=== PATIENT | female | born 1985 | race Caucasian/White ===

== ENCOUNTER → 2019-01-06 | Outpatient (CLI) | payer MEDICAID ==
--- NOTE | 2019-01-06 11:27 | RADIOLOGY REPORT (SQ) ---
EXAM DESCRIPTION: CHEST PA/LATERAL COMPLETED DATE/TIME: 01/06/2019 11:08 am REASON FOR STUDY: ENCOUNTER FOR OTHER PREPROCEDURAL EXAMINATION COMPARISON: None. EXAM PARAMETERS: NUMBER OF VIEWS: two views TECHNIQUE: Digital Frontal and Lateral radiographic views of the chest acquired. RADIATION DOSE: NA LIMITATIONS: none FINDINGS: LUNGS AND PLEURA: No consolidation or effusions. No pneumothorax. Biapical pleural thick ening. MEDIASTINUM AND HILAR STRUCTURES: No masses or contour abnormalities. HEART AND VASCULAR STRUCTURES: Heart normal size. No evidence for failure. BONES: No acute findings. HARDWARE: [id number] is in place. OTHER: No other significant finding. IMPRESSION: NO SIGNIFICANT RADIOGRAPHIC FINDING IN THE CHEST. TECHNICAL DOCUMENTATION: JOB ID: [id number] [employer]- All Rights Reserved Reading location - IP/workstation name: [email or web address]
[2019-01-06 11:43] LABS: ABSOLUTE EOSINOPHILS # (AUTO) 0.2 10^3/uL (0.0-0.6); ABSOLUTE LYMPHOCYTES (AUTO) 3.8 10^3/uL (0.5-4.7); ABSOLUTE MONOCYTES (AUTO) 0.5 10^3/uL (0.1-1.4); ABSOLUTE NEUT (AUTO) 3.9 10^3/uL (1.7-8.2); BASOPHILS % (AUTO) 0.6 % (0-2); HEMATOCRIT 36.2 % (36.0-47.0); HEMOGLOBIN 12.1 g/dL (12.0-15.5); LYMPHOCYTES % (AUTO) 45.1 % (13-45); MEAN CORPUSCULAR HEMOGLOBIN 29.4 pg (27.0-33.4); MEAN CORPUSCULAR HGB CONC 33.6 g/dL (32.0-36.0); MEAN CORPUSCULAR VOLUME 88 fl (80-97); MONOCYTES % (AUTO) 6.1 % (3-13); PLATELET COUNT 297 10^3/uL (150-450); RED BLOOD COUNT 4.14 10^6/uL (3.72-5.28); RED CELL DISTRIBUTION WIDTH 15.8 % (11.5-14.0); SEGMENTED NEUTROPHILS % (AUTO) 46.2 % (42-78); TOTAL CELLS COUNTED % (AUTO) 100 %; WHITE BLOOD COUNT 8.4 10^3/uL (4.0-10.5)
[2019-01-06 11:53] LABS: AMORPHOUS SEDIMENT,URINE TRACE /HPF; APPEARANCE,URINE CLOUDY; BILIRUBIN,URINE NEGATIVE (NEGATIVE); COLOR,URINE YELLOW; GLUCOSE, URINE NEGATIVE (NEGATIVE); KETONES,URINE NEGATIVE (NEGATIVE); PROTEIN,URINE NEGATIVE (NEGATIVE); URINE SPECIFIC GRAVITY 1.014; UROBILINOGEN,URINE NEGATIVE mg/dL (<2.0)
[2019-01-06 12:06] LABS: ALBUMIN 4.2 g/dL (3.5-5.0); ANION GAP 16 (5-19); BLOOD UREA NITROGEN 18 mg/dL (7-20); CALCIUM 9.3 mg/dL (8.4-10.2); CARBON DIOXIDE 26 mmol/L (22-30); CHLORIDE 97 mmol/L (98-107); GLUCOSE 73 mg/dL (75-110); POTASSIUM 3.1 mmol/L (3.6-5.0)
[2019-01-06 12:10] LABS: PREALBUMIN 21.2 mg/dL (17.6-36.0)
[2019-01-06 12:24] LABS: ERYTHROCYTE SEDIMENTATION RATE 35 mm/hr (0-20)
[2019-01-06 12:36] LABS: C-REACTIVE PROTEIN 34.5 mg/L (<10.0)
--- NOTE | 2019-01-06 12:59 | EKG REPORT ---
SEVERITY:- BORDERLINE ECG - SINUS RHYTHM BORDERLINE PROLONGED QT INTERVAL : Confirmed by: Ez Lima MD 06-Jan-2019 12:58:41
== END ==
LOC: OD 10:17
PROVIDERS: ATTEND Orthopaedic Surgery
DX: Z01.810 Encounter for preprocedural cardiovascular examination (principal); Z01.818 Encounter for other preprocedural examination; M17.12 Unilateral primary osteoarthritis, left knee
CPT/HCPCS: 36415; 71046; 80048; 81001; 82040; 82306; 83036; 84134; 85025; 85652; 86140; 87086; 87088; 87186; 93005; 93010

== ENCOUNTER 2019-01-26 07:51 | Inpatient (IN) | payer MEDICAID ==
[~2019-01-26 07:51] MED LIST: ACETAMINOPHEN 325 MG TABLET PO PRN; CEFAZOLIN SODIUM 2 GM in DEXTROSE 5%-WATER 100 ML IV PRN; CELECOXIB 200 MG CAPSULE PO PRN; GABAPENTIN 100 MG CAPSULE PO PRN; ONDANSETRON HCL INJ/PF 4 MG/2 ML SDV IV PRN; OXYCODONE HCL SR 10 MG TABLET PO PRN; TRAMADOL HCL 50 MG TABLET PO PRN; TRANEXAMIC ACID INJ/PF 1,000 MG/10 ML SDV IV PRN; VANCOMYCIN HCL 1,000 MG in DEXTROSE 5%-WATER 250 ML IV PRN
[2019-01-26] MEDS ORDERED: CELECOXIB 200 MG CAPSULE ONE (08:41)
[2019-01-26] MEDS ORDERED: ACETAMINOPHEN 325 MG TABLET ONE (08:41)
[2019-01-26] MEDS ORDERED: ONDANSETRON HCL INJ/PF 4 MG/2 ML SDV ONE (08:42)
[2019-01-26] MEDS ORDERED: GABAPENTIN 100 MG CAPSULE ONE (08:42)
[2019-01-26] MEDS ORDERED: TRAMADOL HCL 50 MG TABLET ONE (08:42)
[2019-01-26] MEDS ORDERED: OXYCODONE HCL SR 10 MG TABLET PO ONE (08:42)
[2019-01-26 09:23] LABS: INTERNATIONAL RATION (INR) 1.04; PROTHROMBIN TIME 13.6 SEC (11.4-15.4)
[2019-01-26 09:24] LABS: PARTIAL THROMBOPLASTIN TIME 29.6 SEC (23.5-35.8)
[2019-01-26] MEDS ORDERED: ALBUTEROL SULFATE 0.083% NEB 2.5 MG/3 ML AMPUL NEB ONE (10:08)
[2019-01-26] MEDS ORDERED: METOCLOPRAMIDE HCL INJ/PF 10 MG/2 ML SDV ONE (10:08)
[2019-01-26] MEDS ORDERED: FAMOTIDINE INJ/PF 20 MG/2 ML SDV IV ONE (10:08)
[2019-01-26 10:21] LABS: POTASSIUM 3.4 mmol/L (3.6-5.0)
[2019-01-26] MEDS ORDERED: RINGERS SOLUTION,LACTATED 1,000 ML IV PRN (10:33)
[2019-01-26] MEDS ORDERED: FENTANYL CITRATE INJ/PF 100 MCG/2 ML AMPUL ONE (10:50)
[2019-01-26] MEDS ORDERED: PROPOFOL INJ 200 MG/20 ML VIAL IV ONE (10:51)
[2019-01-26] MEDS ORDERED: TRANEXAMIC ACID INJ/PF 1,000 MG/10 ML SDV ONE (10:51)
[2019-01-26] MEDS ORDERED: MIDAZOLAM 2 MG/2 ML INJ ONE (10:51)
[2019-01-26] MEDS ORDERED: EPINEPHRINE INJ/PF 1 MG/1 ML AMPULE ONE (11:18)
[2019-01-26] MEDS ORDERED: CEFAZOLIN INJ 1 GM VIAL ONE ×2 (11:20→13:21)
[2019-01-26] MEDS ORDERED: VANCOMYCIN HCL INJ 1000 MG VIAL ONE (11:23)
[2019-01-26] MEDS ORDERED: BUPIVACAINE HCL 0.25 % INJ/PF (2.5 MG/1 ML) 30 ML VIAL ONE (11:23)
[2019-01-26] MEDS ORDERED: GENTAMICIN SULFATE INJ 80 MG/2 ML VIAL ONE (11:23)
[2019-01-26] MEDS ORDERED: BACITRACIN INJ 50,000 UNIT VIAL ONE (11:24)
[2019-01-26] MEDS ORDERED: KETOROLAC TROMETHAMINE 60 MG/2 ML SDV ONE (11:25)
[2019-01-26] MEDS ORDERED: FENTANYL CITRATE INJ/PF 100 MCG/2 ML AMPUL IV PRN ×3 (12:22)
[2019-01-26] MEDS ORDERED: PROMETHAZINE HCL INJ 25 MG/1 ML VIAL IV PRN (12:22)
[2019-01-26] MEDS ORDERED: GENTAMICIN SULFATE INJ 80 MG/2 ML VIAL IV ONE (12:33)
[2019-01-26] MEDS ORDERED: BACITRACIN INJ 50,000 UNIT VIAL IR ONE (12:34)
[2019-01-26] MEDS ORDERED: VANCOMYCIN HCL INJ 1000 MG VIAL IV ONE (12:35)
--- NOTE | 2019-01-26 14:08 | Operative Report ---
Operative Report DATE OF SURGERY: 01/26/19 PREOPERATIVE DIAGNOSIS: Right hip avascular necrosis POSTOPERATIVE DIAGNOSIS: Right hip avascular necrosis OPERATION: Right total hip arthroplasty SURGEON: GABE MORROW JR ANESTHESIA: Spinal COMPLICATIONS: None ESTIMATED BLOOD LOSS: 200 cc INTRAOPERATIVE FINDINGS: Avascular necrosis of the right femoral head PROCEDURE: BRIEF HISTORY: 33year old male/female with avascular necrosis of the right hip with collapse, which has failed conservative treatment and has elected for a total hip arthroplasty. Risks include but are not limited to bleeding, infection, anesthesia, , injury to nerve or vessel, pain, scar, leg length inequality, dislocation, future surgery, and blood clots. Patient read through the pre-op counseling form and signed and solicited for surgery on their right hip. OPERATIVE PROCEDURE: Patient was brought to the operating room on and underwent spinal anesthesia. 2 grams of Ancef and 1 g vancomycin was given. After proper anesthesia was obtained, patient was positioned, padded, prepped, and draped in the usual sterile fashion on the operating room table. Appropriate time out was performed. A anterior approach to the hip was undertaken with meticulous hemostasis. The femoral neck was cut in line with the femoral broach and the femoral head was removed. The acetabulum was then exposed with three retractors in an atraumatic fashion. Soft tissue and osteophytes were removed. Medialization reaming was performed followed by anatomic reaming up to accept a 50 mm acetabulum. The 50 mm acetabulum was impacted into correct position and stability checked with Mary Anne test. A standard 36 liner was impacted into the shell with good stability. Potential impinging osteophytes were removed. Attention was then directed toward the femur, which was exposed with two retractors in an atraumatic fashion. cutter aluminum sheet, lateralization rasping and then broaching up to accept a 11 femur. With a standard offset neck and a standard head, stability was good in flexion and extension with equal leg lengths. The real standard offset femur was impacted into a copiously irrigated femoral canal. A 36 mm standard head was impacted on a clean dry femoral taper. The hip was irrigated and reduced, further irrigation with antibiotic solution, betadine solution, then antibiotic solution. Bleeders were coagulated with bovie cautery. The fascia was then closed with number 2 Stratofix; the subcutaneous tissue closed with interrupted 2-0 Vicryl then running 3-0 monocryl subcuticular. Dermabond skin glue was applied followd by a silver dressing. All needle sponge and instrument counts were correct. Patient was awakened from sedation anesthesia and taken to recovery room in good condition. Thank you, Gabe Morrow, DO
--- NOTE | 2019-01-26 14:46 | RADIOLOGY REPORT (SQ) ---
EXAM DESCRIPTION: NO CHG FLUORO; HIP IN OPERATING RM COMPLETED DATE/TIME: 01/26/2019 2:28 pm REASON FOR STUDY: RIGHT HIP ARTHROPLASTY-ASSISTED WITH FLUORO IN OR COMPARISON: None. FLUOROSCOPY TIME: No recorded fluoro time is given. 3 Images saved to PACS LIMITATIONS: None. PROCEDURE: Right hip arthroplasty. FINDINGS: Images from fluoro document the procedure. IMPRESSION: Right hip arthroplasty. Refer to operative note for further information. COMMENT: PQRS 6045F: Fluoroscopy time of the procedure is documented in the report. TECHNICAL DOCUMENTATION: JOB ID: [id number] [employer]- All Rights Reserved Reading location - IP/workstation name: [email or web address]
--- NOTE | 2019-01-26 14:46 | RADIOLOGY REPORT (SQ) ---
EXAM DESCRIPTION: NO CHG FLUORO; HIP IN OPERATING RM COMPLETED DATE/TIME: 01/26/2019 2:28 pm REASON FOR STUDY: RIGHT HIP ARTHROPLASTY-ASSISTED WITH FLUORO IN OR COMPARISON: None. FLUOROSCOPY TIME: No recorded fluoro time is given. 3 Images saved to PACS LIMITATIONS: None. PROCEDURE: Right hip arthroplasty. FINDINGS: Images from fluoro document the procedure. IMPRESSION: Right hip arthroplasty. Refer to operative note for further information. COMMENT: PQRS 6045F: Fluoroscopy time of the procedure is documented in the report. TECHNICAL DOCUMENTATION: JOB ID: [id number] [employer]- All Rights Reserved Reading location - IP/workstation name: [email or web address]
[2019-01-26] MEDS ORDERED: OXYCODONE HCL IR 5 MG TABLET PO PRN ×4 (15:01→15:11)
[2019-01-26] MEDS ORDERED: MORPHINE SULFATE 10 MG/ML INJ IV PRN ×2 (15:03→15:12)
[2019-01-26] MEDS ORDERED: DEXAMETHASONE SOD PHOS INJ 10 MG/1 ML VIAL IV PRN (15:04)
[2019-01-26] MEDS ORDERED: TRANEXAMIC ACID INJ/PF 1,000 MG/10 ML SDV IV PRN (15:05)
[2019-01-26] MEDS ORDERED: PANTOPRAZOLE SODIUM 20 MG TABLET.DR PO PRN (15:14)
[2019-01-26] MEDS ORDERED: DIPHENHYDRAMINE HCL 25 MG CAPSULE PO PRN (15:15)
[2019-01-26] MEDS ORDERED: ZOLPIDEM TARTRATE 5 MG TABLET PO PRN (15:16)
[2019-01-26] MEDS ORDERED: DOCUSATE SODIUM 100 MG CAPSULE PO PRN (15:18)
[2019-01-26] MEDS ORDERED: NORMAL SALINE 1000 ML 1,000 ML IV PRN (15:19)
[2019-01-26] MEDS ORDERED: ONDANSETRON 4 MG TAB.RAPDIS PO PRN (15:19)
[2019-01-26] MEDS ORDERED: RINGERS SOLUTION,LACTATED 1,000 ML IV ONE (17:15)
[2019-01-26] MEDS: TRAMADOL HCL 50 MG TABLET PO SCH ×2 (17:55→21:09)
[2019-01-26] MEDS: KETOROLAC TROMETHAMINE INJ/PF 30 MG/1 ML SDV IV SCH (17:56)
--- NOTE | 2019-01-26 18:20 | RADIOLOGY REPORT (SQ) ---
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 NUMBER OF VIEWS: Two view(s). TECHNIQUE: Digital radiographic images of the right hip post-procedure. LIMITATIONS: None. FINDINGS: BONES: No worrisome or unexpected findings post-procedure. DEVICE: Total hip replacement. Components of the device in appropriate location. SOFT TISSUES: No worrisome findings. Expected postoperative soft tissue changes. IMPRESSION: SATISFACTORY POSTOPERATIVE RIGHT HIP. TECHNICAL DOCUMENTATION: JOB ID: [id number] [place]-[id number] 2010 [employer]- All Rights Reserved Reading location - IP/workstation name: [email or web address]
[2019-01-26] MEDS: GABAPENTIN 100 MG CAPSULE PO SCH (21:09)
[2019-01-26] MEDS: ACETAMINOPHEN 325 MG TABLET PO SCH (21:09)
[2019-01-26] MEDS: CEFAZOLIN SODIUM 2 GM in DEXTROSE 5%-WATER 100 ML IV SCH (22:09)
[2019-01-27] MEDS: TRAMADOL HCL 50 MG TABLET PO SCH ×3 (02:11→09:37)
[2019-01-27] MEDS: KETOROLAC TROMETHAMINE INJ/PF 30 MG/1 ML SDV IV SCH ×2 (02:11→09:37)
[2019-01-27] MEDS: CEFAZOLIN SODIUM 2 GM in DEXTROSE 5%-WATER 100 ML IV SCH (05:06)
[2019-01-27] MEDS: ACETAMINOPHEN 325 MG TABLET PO SCH (05:07)
[2019-01-27] MEDS: GABAPENTIN 100 MG CAPSULE PO SCH (09:37)
[2019-01-27] MEDS ORDERED: CELECOXIB 200 MG CAPSULE PO SCH (10:00)
[2019-01-27] MEDS ORDERED: ASPIRIN 325 MG TABLET, ENT COATED PO SCH (10:00)
[2019-01-27] MEDS ORDERED: POLYETHYLENE GLYCOL 3350 POWDER 17 GM/1 PACKET PO SCH (10:00)
[2019-01-27 19:30] VITALS: BP 101/56
--- NOTE | 2019-01-29 07:01 | PDOC DISCHARGE SUMMARY ---
Impression - Admit/DC Date/PCP Admission Date/Primary Care Provider: 01/26/19 07:51 AGUILA LEONE MD Discharge Date: 01/27/19 - Assessment Summary: The patient is a 33-year-old female who [facility] which upon further evaluation turned out to be right hip avascular necrosis associated with long-term steroid use. We discussed treatment options including conservative management which she had failed over the past few months. However at the time of our visit she had progressed to collapse and conservative management was no longer appropriate. After reviewing risks benefits and other treatment options patient elected to proceed with a right total hip arthroplasty. We had her proceed with a thorough preoperative clearance routine to ensure that she was safe for surgery. On 01/26/2019 she was brought to the operating room for definitive management of her right hip avascular necrosis. She underwent surgery and tolerated it very well without any complications. She was brought on to the hospital floor subsequently for postoperative medical management as well as pain control. On postoperative day #1 she was doing very well, ambulating with physical therapy and her pain was minimal. She is very pleased with her outcome and was able to work with physical therapy to an appropriate level where they deemed her stable for discharge home. She was discharged home on 01/27/2019 without any complications or acute events. All prescriptions and detailed treatment plans provided the patient in the office prior to admission. - Additional Information Resuscitation Status: Full Code Discharge Diet: Diabetic Discharge Activity: Activity As Tolerated, No Driving, Keep Legs Elevated, Supervised Activity, Walk Frequently Referrals: ROMAN MORROW JR, DO [ACTIVE PROVISIONAL STAFF] - 02/09/19 1:00 pm (RIGHT HIP) Home Medications: Albuterol Sulfate [Albuterol Sulfate Hfa] 2 puff IH Q3HP PRN 01/26/19 Albuterol Sulfate [Ventolin 0.083% Neb 2.5 mg/3 mL Ampul] 3 ml NEB Q6HP PRN 01/26/19 Amitriptyline HCl [Elavil 25 mg Tablet] 25 mg PO QHS 01/26/19 Budesonide/Formoterol Fumarate [Symbicort HFA 160-4.5 mcg Inhaler 6 gm] 2 puff IH Q12 01/26/19 Buprenorphine [Butrans] 20 mcg TOP Q7D 01/26/19 Clotrimazole [Itch Relief] 1 applic TOP BID 01/26/19 Clotrimazole/Betamethasone Dip [Lotrisone Cream 15 gm] 1 applic TOP DAILY 01/26/19 Codeine Phosphate/Guaifenesin [Cheratussin AC Syrup] 5 ml PO Q4HP PRN 01/26/19 Duloxetine HCl [Cymbalta] 60 mg PO DAILY 01/26/19 Hydrochlorothiazide [Hydrodiuril 25 mg Tablet] 25 mg PO DAILY 01/26/19 Hydrochlorothiazide [Hydrodiuril 25 mg Tablet] 25 mg PO DAILY 01/26/19 Insulin Aspart [Novolog Insulin (Aspart) 100 unit/mL] 6 units SQ MEALS 01/26/19 Insulin Glargine,Hum.rec.anlog [Lantus Insulin 100 Unit/1 ml 10 ml] 8 units SQ QHS 01/26/19 Levetiracetam [Keppra] 1,500 mg PO Q12 01/26/19 Metoprolol Succinate [Toprol Xl 25 mg Tab.sr] 25 mg PO Q12 01/26/19 Morphine Sulfate [Morphine 10 mg/5 ml Oral Soln Udcup] 7.5 ml GT Q6HP PRN 01/26/19 Ondansetron HCl [Zofran 4 mg Tablet] 4 mg PO DAILYP PRN 01/26/19 Polyethylene Glycol 3350 [Miralax Powder 17 gm/Packet] 17 gm PO DAILY 01/26/19 Pregabalin [Lyrica] 200 mg PO Q8 01/26/19 Rivaroxaban [Xarelto] 20 mg PO DAILY 01/26/19 Rosuvastatin Calcium [Crestor 10 mg Tablet] 10 mg PO DAILY 01/26/19 Triamcinolone Acetonide [Aristocort 0.5% Cream 15 gm] 1 applic TOP BID 01/26/19 Acetaminophen [Tylenol 325 mg Tablet] 975 mg PO Q8 tablet 01/27/19 Aspirin [Ecotrin 325 mg EC Tablet] 325 mg PO DAILY tabec 01/27/19 Celecoxib [Celebrex 200 mg Capsule] 200 mg PO DAILY capsule 01/27/19 Docusate Sodium [Colace 100 mg Capsule] 100 mg PO TIDP PRN capsule 01/27/19 Tramadol HCl [Ultram 50 mg Tablet] 50 mg PO Q4 tablet 01/27/19 History of Present Illiness History of Present Illness: BASILIO SCOTT is a 33 year old female Physical Exam Vital Signs: Temp Pulse Resp BP Pulse Ox 98.1 F 84 18 117/51 L 100 01/27/19 09:43 01/27/19 09:43 01/27/19 09:43 01/27/19 09:43 01/27/19 09:43 Intake & Output 01/27/19 01/28/19 01/29/19 06:59 06:59 06:59 Intake Total 4130 Output Total 630 Balance 3500 Weight 100.9 kg Results Laboratory Results: PT 13.6 SEC (11.4-15.4) 01/26/19 09:03 INR 1.04 01/26/19 09:03 APTT 29.6 SEC (23.5-35.8) 01/26/19 09:03 Potassium 3.4 mmol/L (3.6-5.0) L 01/26/19 09:50 Glucose 117 mg/dL (75-110) H 01/26/19 09:50 POC Glucose 152 mg/dL (70-110) H 01/26/19 21:11 Serum HCG, Qual NEGATIVE (NEGATIVE) 01/26/19 09:03 Blood Type B POSITIVE 01/26/19 09:03 Antibody Screen NEGATIVE 01/26/19 09:03 Impressions: Fluoroscopy 01/26/19 00:00 IMPRESSION: Right hip arthroplasty. Refer to operative note for further information. Hip X-Ray 01/26/19 00:00 IMPRESSION: Right hip arthroplasty. Refer to operative note for further information. Hip/Pelvis X-Ray 01/26/19 16:52 IMPRESSION: SATISFACTORY POSTOPERATIVE RIGHT HIP. Stroke Is this a Stroke Patient?: No Stroke Pt being discharged on Anti-thrombolytic therapy?: Yes Acute Heart Failure - Is this a Heart Failure Patient?: No
== END 2019-01-27 10:58 | disposition home or self-care (01) | DRG 470 ==
LOC: INOR 07:51 → 4N 16:27
PROVIDERS: ADMIT Orthopaedic Surgery; ATTEND Orthopaedic Surgery
PROC: 0SR90JZ Replacement of Right Hip Joint with Synthetic Substitute, Open Approach (ICD-10-PCS; principal; 2019-01-26 10:00)
DX: M87.051 Idiopathic aseptic necrosis of right femur (principal); T38.0X5A Adverse effect of glucocorticoids and synthetic analogues, initial encounter; E11.9 Type 2 diabetes mellitus without complications; Z86.718 Personal history of other venous thrombosis and embolism; Z88.0 Allergy status to penicillin; Z88.8 Allergy status to other drugs, medicaments and biological substances; Z91.048 Other nonmedicinal substance allergy status; Z79.01 Long term (current) use of anticoagulants; Z79.4 Long term (current) use of insulin; Z79.82 Long term (current) use of aspirin
CPT/HCPCS: 01214; 36415; 82947; 82962; 84132; 84703; 85610; 85730; 86850; 86900; 86901; J0171; J0690; J1580; J1642; J1885; J2250; J2405; J2704; J2765; J3010; J3370; J3490; J7030; J7060; J7120; S0028

== ENCOUNTER → 2019-03-20 | Outpatient (CLI) | payer MEDICAID | LOC: RAD 11:35 | PROVIDERS: ATTEND Orthopaedic Surgery | DX: M23.91 Unspecified internal derangement of right knee (principal); Z53.8 Procedure and treatment not carried out for other reasons ==

== ENCOUNTER 2019-05-20 10:04 | Day surgery (SDC) | payer MEDICAID ==
[2019-05-13 10:44] LABS: ABSOLUTE BASOPHILS # (AUTO) 0.1 10^3/uL (0.0-0.2); ABSOLUTE EOSINOPHILS # (AUTO) 0.2 10^3/uL (0.0-0.6); ABSOLUTE LYMPHOCYTES (AUTO) 3.6 10^3/uL (0.5-4.7); ABSOLUTE MONOCYTES (AUTO) 0.5 10^3/uL (0.1-1.4); ABSOLUTE NEUT (AUTO) 3.8 10^3/uL (1.7-8.2); BASOPHILS % (AUTO) 0.7 % (0-2); EOSINOPHILS % (AUTO) 2.4 % (0-6); HEMATOCRIT 37.5 % (36.0-47.0); HEMOGLOBIN 12.6 g/dL (12.0-15.5); LYMPHOCYTES % (AUTO) 44.1 % (13-45); MEAN CORPUSCULAR HEMOGLOBIN 29.3 pg (27.0-33.4); MEAN CORPUSCULAR HGB CONC 33.5 g/dL (32.0-36.0); MEAN CORPUSCULAR VOLUME 88 fl (80-97); MONOCYTES % (AUTO) 6.4 % (3-13); PLATELET COUNT 257 10^3/uL (150-450); RED BLOOD COUNT 4.28 10^6/uL (3.72-5.28); RED CELL DISTRIBUTION WIDTH 16.1 % (11.5-14.0); SEGMENTED NEUTROPHILS % (AUTO) 46.4 % (42-78); TOTAL CELLS COUNTED % (AUTO) 100 %; WHITE BLOOD COUNT 8.2 10^3/uL (4.0-10.5)
[2019-05-13 11:10] LABS: ANION GAP 11 (5-19); BLOOD UREA NITROGEN 15 mg/dL (7-20); CALCIUM 9.4 mg/dL (8.4-10.2); CARBON DIOXIDE 31 mmol/L (22-30); CHLORIDE 99 mmol/L (98-107); GLUCOSE 94 mg/dL (75-110); POTASSIUM 3.2 mmol/L (3.6-5.0)
--- NOTE | 2019-05-13 13:26 | EKG REPORT ---
SEVERITY:- BORDERLINE ECG - SINUS RHYTHM BORDERLINE PROLONGED QT INTERVAL NONSPECIFIC ST-T CHANGES- INFERIOR LEADS : Confirmed by: Ez Lima MD 13-May-2019 13:25:41
[~2019-05-20 10:04] MED LIST changes: -CELECOXIB 200 MG CAPSULE PO PRN; -GABAPENTIN 100 MG CAPSULE PO PRN; +LACTATED RINGERS 1000 ML IV PRN; +LIDOCAINE 0.5% INJ-PF (5 MG/ML) 50 ML SDV SUBCUT PRN; -ONDANSETRON HCL INJ/PF 4 MG/2 ML SDV IV PRN; -TRAMADOL HCL 50 MG TABLET PO PRN; -TRANEXAMIC ACID INJ/PF 1,000 MG/10 ML SDV IV PRN; -VANCOMYCIN HCL 1,000 MG in DEXTROSE 5%-WATER 250 ML IV PRN
[2019-05-20] MEDS ORDERED: ACETAMINOPHEN 325 MG TABLET ONE (10:31)
[2019-05-20] MEDS ORDERED: OXYCODONE HCL SR 10 MG TABLET PO ONE (10:32)
[2019-05-20 11:13] LABS: INTERNATIONAL RATION (INR) 1.06; PARTIAL THROMBOPLASTIN TIME 30.2 SEC (23.5-35.8); PROTHROMBIN TIME 13.8 SEC (11.4-15.4)
[2019-05-20] MEDS ORDERED: CEFAZOLIN 1 GM/D5W RTU 1 GM/50 ML RTUPB IV ONE (12:04)
[2019-05-20] MEDS ORDERED: CEFAZOLIN INJ 1 GM VIAL ONE (12:04)
[2019-05-20] MEDS ORDERED: FENTANYL CITRATE INJ/PF 100 MCG/2 ML AMPUL ONE (12:10)
[2019-05-20] MEDS ORDERED: ONDANSETRON HCL INJ/PF 4 MG/2 ML SDV ONE (12:11)
[2019-05-20] MEDS ORDERED: MIDAZOLAM 2 MG/2 ML INJ ONE (12:11)
[2019-05-20] MEDS ORDERED: PROPOFOL INJ 200 MG/20 ML VIAL IV ONE ×2 (12:11→14:54)
[2019-05-20] MEDS ORDERED: DEXAMETHASONE SOD PHOSPHATE INJ 4 MG/1 ML VIAL ONE (12:11)
[2019-05-20] MEDS ORDERED: EPINEPHRINE INJ/PF 1 MG/1 ML AMPULE ONE (12:37)
[2019-05-20] MEDS ORDERED: KETOROLAC TROMETHAMINE INJ/PF 30 MG/1 ML SDV ONE ×2 (12:37→12:38)
[2019-05-20] MEDS ORDERED: TRIAMCINOLONE ACETONIDE INJ 40 MG/1 ML VIAL ONE (12:37)
[2019-05-20] MEDS ORDERED: BUPIVACAINE HCL 0.5 % INJ/PF 30 ML SDV ONE (12:37)
[2019-05-20] MEDS ORDERED: LIDOCAINE 1% INJ-PF (10 MG/ML) 30 ML SDV ONE (12:37)
[2019-05-20] MEDS ORDERED: KETAMINE HCL INJ 500 MG/10 ML VIAL ONE (13:04)
[2019-05-20] MEDS ORDERED: MEPERIDINE HCL/PF INJ 25 MG/1 ML DISP.SYRIN IV PRN (14:40)
[2019-05-20] MEDS ORDERED: ONDANSETRON HCL INJ/PF 4 MG/2 ML SDV IV PRN (14:40)
[2019-05-20] MEDS ORDERED: MORPHINE SULFATE 10 MG/ML INJ IV PRN (14:40)
[2019-05-20] MEDS ORDERED: DIPHENHYDRAMINE HCL 50 MG/ML VIAL IV PRN (14:40)
[2019-05-20] MEDS ORDERED: FENTANYL CITRATE INJ/PF 100 MCG/2 ML AMPUL IV PRN ×3 (14:40)
--- NOTE | 2019-05-20 16:34 | Operative Report ---
Operative Report DATE OF SURGERY: 05/20/19 PREOPERATIVE DIAGNOSIS: Right knee internal derangement, fat pad syndrome POSTOPERATIVE DIAGNOSIS: Right knee internal derangement, fat pad syndrome OPERATION: Right knee diagnostic arthroscopy, fat pad excision, lateral release. SURGEON: ROMAN MORROW JR ANESTHESIA: LMAC COMPLICATIONS: None ESTIMATED BLOOD LOSS: 10cc PROCEDURE: The patient was brought to the operating suite and placed supine on the operating table. 2 g of Ancef were provided. They were provided with LMAC anesthesia. After adequate anesthesia local injection was then given into the right knee. The left lower extremity was then prepped and draped in standard sterile fashion. After this a appropriate timeout was performed the patient was marked. An Esmarch was used to exsanguinate the limb and the tourniquet was inflated. We then proceeded by making a lateral portal and inserting our camera. Upon doing so we inspected the superior patellar pouch and then brought the knee into flexion and inspected the medial gutter and medial compartment. Then we inserted a spinal needle to localize the medial portal. The medial portal was then made, followed by a trocar to dilate, followed by introduction of a probe. Patient had a very thick and scarred infrapatellar fat pad. We introduced a shaver proceeded to debride the infrapatellar fat pad and some of this thickened synovium surrounding the patella and along the medial lateral anterior compartment. After adequate debridement we were then able to visualize the ACL PCL and lateral compartment and proceeded with our standard diagnostic arthroscopy starting with the medial compartment and evaluating the ACL and PCL as well as the lateral compartment. These were all in excellent condition with no signs of meniscus tear, cartilage loss or injury, or other internal derangement, however there was some noted softening in the medial tibial plateau as well as along the periphery of the medial meniscus. We then returned to the suprapatellar pouch and evaluated the medial and lateral patellofemoral gutters the medial aspect was free of any tethered synovium or scar tissue. The lateral parapatellar tissue was taught and there was hyperemic synovium and inferior fat pad. This was resected followed by a lateral release. Full exploration of the knee did not find any loose bodies. Pictures were taken throughout the procedure. The wound was copiously irrigated and all excess fluid was evacuated. The knee was injected with a cocktail of local anesthetic and then sutures were applied to the portal sites followed by a sterile compressive dressing. The patient was then awakened from anesthesia and transferred to the PACU in stable condition.
--- NOTE | 2019-05-20 16:35 | Discharge Summary ---
Discharge Summary (SDC) - Discharge Final Diagnosis: Right knee internal derangement, fat pad syndrome Date of Surgery: 05/20/19 Condition: Stable Forms: ASU Anesthesia D/C Instruction, Discharge POC-Surgical Service Treatment or Instructions: WITHIN 24 HOURS: NO DRIVING, NO DRINKING ALCOHOL. NO IMPORTANT DECISION. REGULAR DIET. RESUME HOME MEDICATION. NO LIFTING, PULLING OR PUSHING. KEEP YOUR KNEE ELEVATED. PUT ICE ON YOUR KNEE 15 TO 2O MINS EVER HOUR NEEDED. IF DRAINAGE NOTED, SIGN OF INFECTION, FEVER OVER 100 DEGREES, NOTIFY MY RIGHT AWAY. IF RIGHT KNEE IS NUMB, MAY ADJUST WRAP. IF UNRELIEVED AFTER 30 MINUTES, PLEASE GO TO EMERGENCY DEPT RIGHT AWAY. Referrals: ROMAN MORROW JR, [ACTIVE PROVISIONAL STAFF] - Discharge Diet: Diabetic Respiratory Treatments at Home: Deep Breathing/Coughing Discharge Activity: Activity As Tolerated, Keep Legs Elevated, No Lifting/Push/Pulling, Slowly Increase Activity, Walk Frequently Home Care Assistance: None Needed Adaptive Devices on Discharge: Axillary Crutches Report the Following to Your Physician Immediately: Shortness of Breath, Nausea, Vomiting, Increase in Pain, Fever over 101 Degrees, IV Site Infection Signs
[2019-05-20 16:54] VITALS: BP 120/72
== END 2019-05-20 16:38 | disposition home or self-care (01) ==
LOC: OROUT 10:04
PROVIDERS: ATTEND Orthopaedic Surgery
DX: M23.91 Unspecified internal derangement of right knee (principal); M79.4 Hypertrophy of (infrapatellar) fat pad; E11.9 Type 2 diabetes mellitus without complications; I10 Essential (primary) hypertension; G35 Multiple sclerosis; J45.909 Unspecified asthma, uncomplicated; Z79.4 Long term (current) use of insulin; Z79.51 Long term (current) use of inhaled steroids; Z79.899 Other long term (current) drug therapy; Z88.0 Allergy status to penicillin; Z79.01 Long term (current) use of anticoagulants; Z79.82 Long term (current) use of aspirin
CPT/HCPCS: 29873; 93005; 36415 ×2; 82962; 84132; 85025; 85610; 85730; 80048; 93010; 01400; J3490 ×5; J2250; J0690 ×2; J1100; J0171; J3010; J1885; J2405; J2704; J1642; 1400; J3301